=== PATIENT | female | born 1935 | race Caucasian/White ===

== ENCOUNTER 2016-11-14 10:03 | Emergency (ER) | payer OTHER ==
[2016-11-14 11:11] VITALS: TEMP 96.5
[2016-11-14 13:35] VITALS: O2SAT 99
[2016-11-14 13:40] VITALS: BP 132/78; PULSE 72; RESP 18
== END 2016-11-14 13:10 | disposition home or self-care (01) | DRG 392 ==
LOC: ED 10:03
DX: K59.00 Constipation, unspecified (principal)
CPT/HCPCS: 74020; 99282; 99283